=== PATIENT | male | born 1960 | race Two or more races ===

== ENCOUNTER → 2024-10-25 | Outpatient (CLI) | payer BC, SELFPAY ==
--- NOTE | 2024-10-25 13:00 | XR_ITS ---
Examination: Abdomen sonogram, complete Date and time of exam: October 25, 2024 1323 hours INDICATIONS: Heartburn beginning 5 years ago. Technique: Multiple real-time grayscale transabdominal sonographic images of the abdomen have been obtained. Findings: Normal gallbladder Common bile duct enlarged 0.9 cm no stones Pancreatic head 1.8 cm Aorta not enlarged Liver 12.9 cm 23 mm liver cyst Fatty infiltration Normal hepatopedal portal venous flow Patent IVC Right kidney 11.3 cm renal cortex 2.0 cm 18 mm upper pole cyst 6 mm midpole cyst Left kidney 10.6 cm renal cortex 1.8 cm Dilated left renal pelvis Spleen 6.9 cm IMPRESSION: Enlarged common bile duct 0.9 cm, clinical correlation advised Consider MRCP follow-up as clinically warranted Probable left extrarenal pelvis
== END | disposition home or self-care (01) ==
PROVIDERS: PCP Specialist; Referring Provider Specialist; Visit Provider Specialist
DX: K83.8 Other specified diseases of biliary tract (principal)
CPT/HCPCS: 76700

== ENCOUNTER 2024-11-19 10:05 | Day surgery (SDC) | payer BC, SELFPAY ==
[2024-11-18 13:05] VITALS: BMI 20.9
[2024-11-19] VITALS (13 sets, daily range): BP systolic 96–142; BP diastolic 53–88; PULSE 70–111; RESP 14–29; TEMP 36.6; O2SAT 95–99; BMI 20.9
[2024-11-19] MEDS: SODIUM CHLORIDE 0.9% 500 ML 500 ML 20 ML IV (11:58)
[2024-11-19] MEDS: DiphenhydrAMINE INJ 50 MG/ML VIAL 25 MG IV (12:02)
[2024-11-19] MEDS: fentaNYL CIT INJ 50 mCg/ML AMP 2ML (ASD USE ONLY) IV (12:03)
[2024-11-19] MEDS: MEPERIDINE INJ 25 MG/ML VIAL (ASD USE ONLY) 50 MG IV (12:17)
[2024-11-19] MEDS: MIDAZOLAM INJ 1 MG/ML VIAL 2 ML (ASD USE ONLY) 2 MG IV (12:19)
[2024-11-19] MEDS: ONDANSETRON INJ 2 MG/ML INJ 2 ML 4 MG (12:45)
--- NOTE | 2024-11-19 13:07 | SUR.PHASEII ---
pt ate one pudding, two cartons of apple juice. pt tolerating well.
== END 2024-11-19 13:30 | disposition home or self-care (01) ==
PROVIDERS: PCP Specialist; Referring Provider Specialist; Visit Provider Specialist
PROC: 0DBE8ZX Excision of Large Intestine, Via Natural or Artificial Opening Endoscopic, Diagnostic (ICD-10-PCS; CPT 45380; principal; 2024-11-19 10:45)
PROC: (CPT 43239; 2024-11-19 10:45)
DX: K64.9 Unspecified hemorrhoids (principal); K57.30 Diverticulosis of large intestine without perforation or abscess without bleeding
CPT/HCPCS: 45378; A4649; C1769; J1200; J2175; J2250; J2405; J3010; J7040

== ENCOUNTER → 2024-12-11 | Outpatient (CLI) | payer BC, SELFPAY | END | disposition home or self-care (01) | PROVIDERS: PCP Specialist; Referring Provider Specialist; Visit Provider Specialist | DX: R83.5 Abnormal microbiological findings in cerebrospinal fluid (principal) ==

== ENCOUNTER → 2024-12-24 | Outpatient (CLI) | payer BC, SELFPAY ==
--- NOTE | 2024-12-24 09:44 | XR_ITS ---
Examination: CT abdomen and pelvis without contrast. Coronal 3-D reconstructions. Sagittal 2-D reconstructions. Date and time of exam:December 24, 2024 at 1003 hours INDICATIONS: Abdomen sonogram October 25, 2024 enlarged common bile duct CTDI: vol (mGy): 6.1 DLP: (mGycm): 341 Technique: Axial images of the abdomen have been obtained, 3 mm slice thickness Intravenous contrast material has not been administered. Low dose protocols were performed. One or more of the following dose reduction techniques were used; automated exposure control, adjustment of the mA and/or KV according to patient size, use of iterative reconstruction technique. Findings: 21 mm left lobe liver cyst No intrahepatic biliary tract dilatation No gallstones Common hepatic duct 9 mm, no definite common hepatic or common bile duct stones No pancreatic mass Minimal perinephric stranding Aorta normal size Normal appendix No bowel obstruction Minimal thickening of urinary bladder wall Mild prostatomegaly Advanced degenerative disc disease L4-L5, L5-S1 IMPRESSION: Enlarged common hepatic duct 9 mm, consider MRCP follow-up
== END | disposition home or self-care (01) ==
PROVIDERS: PCP Specialist; Referring Provider Specialist; Visit Provider Specialist
DX: K83.8 Other specified diseases of biliary tract (principal)
CPT/HCPCS: 74176